=== PATIENT | male | born 1940 | race Two or more races ===

== ENCOUNTER 2022-05-12 23:22 | Emergency (ER) | payer MEDICARE, OTHER ==
[~2022-05-12] VITALS: Ht 167.6 cm; Wt 63.5 kg
[2022-05-13] MEDS ORDERED: DIATR MEGLU/DIATRIZOATE SODIUM 30 ML BOTTLE (GASTROGRAPHIN) ONE (00:54)
--- NOTE | 2022-05-13 02:02 | NUR ---
GTUBE REPLACED AND CONFIRMED BY XRAY.
--- NOTE | 2022-05-13 02:39 | NUR ---
[facility] CALLED ETA 30-45 MINUTES.
--- NOTE | 2022-05-13 03:08 | NUR ---
REPORT GIVEN TO MICHI FOR [facility]
--- NOTE | 2022-05-13 03:09 | NUR ---
PICKED UP BY [facility] [address] IN STABLE CONDITION
[2022-05-13 03:15] VITALS: BP 121/64
== END 2022-05-13 03:16 ==
LOC: ER 23:24
DX: Z43.1 Encounter for attention to gastrostomy (principal); I10 Essential (primary) hypertension; J44.9 Chronic obstructive pulmonary disease, unspecified; F03.90 Unspecified dementia, unspecified severity, without behavioral disturbance, psychotic disturbance, mood disturbance, and anxiety; Z86.73 Personal history of transient ischemic attack (TIA), and cerebral infarction without residual deficits
CPT/HCPCS: 99284; 43762; 74018; Q9963

== ENCOUNTER 2023-04-17 12:16 | Emergency (ER) | payer MEDICARE, OTHER ==
[~2023-04-17] VITALS: Ht 167.6 cm; Wt 65.3 kg
[2023-04-17] MEDS ORDERED: DIATR MEGLU/DIATRIZOATE SODIUM 30 ML BOTTLE (GASTROGRAPHIN) ONE (15:22)
[2023-04-17 19:23] VITALS: BP 124/58; TEMP 97.9; O2SAT 98
== END 2023-04-17 19:29 ==
LOC: ER 12:35
DX: K92.89 Other specified diseases of the digestive system (principal); I10 Essential (primary) hypertension; J44.9 Chronic obstructive pulmonary disease, unspecified; F03.90 Unspecified dementia, unspecified severity, without behavioral disturbance, psychotic disturbance, mood disturbance, and anxiety; Y92.89 Other specified places as the place of occurrence of the external cause
CPT/HCPCS: 99284; 43762; 74018 ×2; Q9963

== ENCOUNTER 2023-09-06 22:46 | Inpatient (IN) | payer MEDICARE, OTHER ==
[~2023-09-06] VITALS: Ht 175.3 cm; Wt 62.1 kg
[2023-09-06 23:39] LABS: BASOPHILS % (AUTO) 0.5 % (0.0-2.0); EOSINOPHILS # (AUTO) 0.1 K/uL (0.0-0.7); EOSINOPHILS % (AUTO) 1.4 % (0.0-6.0); HEMATOCRIT 42 % (39-51); HEMOGLOBIN 13.7 g/dL (13.5-17.5); LYMPHOCYTES # (AUTO) 1.7 K/uL (0.8-4.8); LYMPHOCYTES % (AUTO) 31.2 % (20.0-44.0); MEAN CORPUSCULAR HEMOGLOBIN 28 PG (26.0-33.0); MEAN CORPUSCULAR HGB CONC 33 g/dl (31.0-36.0); MEAN CORPUSCULAR VOLUME 84 fL (80-96); MONOCYTES # (AUTO) 0.3 K/uL (0.1-1.30); NEUTROPHILS # (AUTO) 3.3 K/uL (1.8-8.9); NEUTROPHILS % (AUTO) 60.9 % (43.0-81.0); PLATELET COUNT (AUTO) 69 K/uL (150-450); RED BLOOD CELL COUNT(AUTO) 4.99 MIL/uL (4.5-6.0); RED CELL DISTRIBUTION WIDTH 16.7 % (11.5-15.0); WHITE BLOOD COUNT (AUTO) 5.4 K/uL (4.3-11.0)
[2023-09-06 23:45] LABS: INR 1.08 (0.91-1.10); PROTHROMBIN TIME 11.4 SECS (9.2-11.1)
[2023-09-06 23:57] LABS: ANISOCYTOSIS 1+; BASOPHILS % (MANUAL) 0 % (0.0-2.0); EOSINOPHILS % (MANUAL) 1 % (0-4); LYMPHOCYTES % (MANUAL) 29 % (16-48); MONOCYTES % (MANUAL) 5 % (0-11.0); NEUTROPHILS % (MANUAL) 65 (42-76); PLATELET ESTIMATE DECREASED
[2023-09-07] LABS: CALCIUM, SERUM 8.6 mg/dL (8.5-10.1); CARBON DIOXIDE 30 mmol/L (21-32); CHLORIDE 106 mmol/L (98-107); CREATININE 0.6 mg/dL (0.6-1.3); GLUCOSE 107 mg/dL (74-106); POTASSIUM 4.2 mmol/L (3.5-5.1); SODIUM SERUM 143 mmol/L (136-145); UREA NITROGEN, BLOOD 15 mg/dL (7-18)
[2023-09-07 00:06] LABS: LACTIC ACID 2.2 mmol/L (0.4-2.0)
[2023-09-07 00:17] LABS: ALANINE AMINOTRANSFERASE 13 U/L (12-78); ALBUMIN 2.4 g/dL (3.4-5.0); ALKALINE PHOSPHATASE 120 U/L (46-116); ASPARTATE AMINOTRANSFERASE 9 U/L (15-37); BILIRUBIN,TOTAL 0.6 mg/dL (0.2-1.0); NT-PRO BNP 412 pg/mL (0-125); TOTAL PROTEIN, SERUM 7.8 g/dL (6.4-8.2)
[2023-09-07] MEDS: IV NS 0.9% 1,000 ML IV ONE ×2 (01:22→03:13)
[2023-09-07 02:15] LABS: BILIRUBIN,DIRECT 0.2 mg/dL (0.0-0.2)
[2023-09-07 02:23] LABS: LACTIC ACID REFLEX 3.8 mmol/L (0.4-1.9)
[2023-09-07] MEDS: PIPERACILLIN /TAZOBACTAM 3.375 G in IV D5W 50 ML IV ONE (03:13)
[2023-09-07] MEDS ORDERED: PIPERACI/TAZO 3.375GM/D5W 50ML PB IV ONE (03:13)
[2023-09-07 03:14] LABS: APPEARANCE,URINE SLIGHTLY CLOUDY (CLEAR); BILIRUBIN,URINE NEGATIVE (NEGATIVE); BLOOD, URINE 2+ Ery/uL (NEGATIVE); COLOR,URINE YELLOW (YELLOW); KETONES,URINE NEGATIVE (NEGATIVE); LEUKOCYTE ESTERASE ,URINE 3+ (NEGATIVE); NITRITE, URINE NEGATIVE (NEGATIVE); PROTEIN,URINE TRACE mg/dl (NEGATIVE); UGLUCOSE NEGATIVE (NEGATIVE); UROBILINOGEN,URINE 0.2 EU/dL (0.2)
[2023-09-07 03:15] LABS: ADD URINE CULTURE YES; BACTERIA,URINE Few /HPF (None Seen); SQUAMOUS EPITHELIAL CELL,UR Few /HPF (None Seen); WBC,URINE 51-80 /HPF (0-3)
[2023-09-07] MEDS ORDERED: ONDANSETRON HCL/PF 4 MG/2 ML VIAL IVP PRN (04:30)
[2023-09-07] MEDS ORDERED: MAGNESIUM HYDROXIDE 30 ML UDC PO PRN (04:30)
[2023-09-07] MEDS ORDERED: DEXTROSE 50%-WATER 50 ML DISP.SYRIN IV PRN ×2 (04:30→12:30)
[2023-09-07] MEDS ORDERED: ACETAMINOPHEN 325 MG TABLET PO PRN (04:30)
[2023-09-07] MEDS ORDERED: MAG HYDROX/AL HYDROX/SIMETH 30 ML UDC PO PRN (04:30)
[2023-09-07] MEDS ORDERED: Z GUARD REMEDY 4 OZ OINT TP PRN (04:30)
[2023-09-07] MEDS ORDERED: ZOLPIDEM TARTRATE 5 MG TABLET PO PRN (04:30)
[2023-09-07] MEDS: IV 1/2NS 1000 ML 1,000 ML IV SCH (05:20)
[2023-09-07] MEDS: BLOOD SUGAR DIAGNOSTIC 1 EACH STRIP IN SCH ×2 (07:03→17:57)
[2023-09-07] MEDS: INSULIN REGULAR, HUMAN 100 UNIT/ML 3 ML VIAL SQ PRN ×2 (07:04→18:04)
[2023-09-07 08:00] VITALS: BP 169/77; TEMP 97.7; O2SAT 99
[2023-09-07] MEDS ORDERED: MELA1TAB27 GT (08:24)
[2023-09-07] MEDS ORDERED: ATOR20TA GT (08:24)
[2023-09-07] MEDS ORDERED: FOLI0.4T6 GT (08:24)
[2023-09-07] MEDS ORDERED: ACET325T53 GT (08:24)
[2023-09-07] MEDS ORDERED: SENN8.6T19 GT (08:24)
[2023-09-07] MEDS ORDERED: MULT-594 GT (08:24)
[2023-09-07] MEDS ORDERED: THIA100T70 GT (08:24)
[2023-09-07] MEDS ORDERED: IPRA3AMP23 IH (08:24)
[2023-09-07] MEDS ORDERED: GLYC2TAB21 GT (08:24)
[2023-09-07] MEDS ORDERED: BISA10SU11 RC (08:24)
[2023-09-07] MEDS ORDERED: FERR220S2 GT (08:24)
[2023-09-07] MEDS ORDERED: NUT.250L18 GT (08:24)
[2023-09-07] MEDS ORDERED: FINA5TAB11 GT (08:24)
[2023-09-07] MEDS ORDERED: MAGN400T30 GT (08:24)
[2023-09-07] MEDS ORDERED: MAG30ORA GT (08:24)
[2023-09-07] MEDS ORDERED: ENOX40DI9 SQ (08:24)
[2023-09-07] MEDS ORDERED: OMEP40CA21 GT (08:24)
[2023-09-07] MEDS ORDERED: ACET1OOV6 HHN (08:24)
[2023-09-07] MEDS ORDERED: DEXT30DR6 EACHEYE (08:24)
[2023-09-07] MEDS ORDERED: CYAN-51 GT (08:24)
[2023-09-07] MEDS ORDERED: MAGN400O6 GT (08:24)
[2023-09-07] MEDS ORDERED: METO5SOL GT (08:24)
[2023-09-07] MEDS ORDERED: GLUC1KIT IJ (08:24)
[2023-09-07] MEDS ORDERED: VALP250S22 GT (08:24)
[2023-09-07] MEDS ORDERED: INSU100I26 SQ (08:24)
[2023-09-07] MEDS ORDERED: INSU100V11 SQ (08:24)
[2023-09-07] MEDS ORDERED: DOCU50LI GT (08:24)
[2023-09-07] MEDS ORDERED: ENOXAPARIN SODIUM 40 MG/0.4 ML DISP.SYRIN SQ SCH (09:00)
[2023-09-07] MEDS: PANTOPRAZOLE 40 MG VIAL IV SCH (09:13)
[2023-09-07] MEDS: PIPERACILLIN /TAZOBACTAM 3.375 G in IV D5W 100 ML IV SCH (09:13)
[2023-09-07] MEDS ORDERED: PIPERACILLIN /TAZOBACTAM 3.375 G in IV D5W 50 ML IV SCH (11:00)
[2023-09-07 12:30] VITALS: BP 165/67; O2SAT 100
[2023-09-07] MEDS ORDERED: MAG HYDROX/AL HYDROX/SIMETH 30 ML UDC GT PRN (12:30)
[2023-09-07] MEDS: GLUCERNA 1.2 1,000 ML BOTTLE NG PRN (13:01)
[2023-09-07] MEDS: VALPROIC ACID 250 MG/5 ML UDC GT SCH (13:01)
[2023-09-07 16:00] VITALS: BP 116/63; TEMP 98.1; O2SAT 93
[2023-09-07] MEDS: GLYCOPYRROLATE 1 MG TABLET GT SCH (17:11)
[2023-09-07] MEDS: MAGNESIUM OXIDE 400 MG TABLET GT SCH (17:12)
[2023-09-07 20:00] VITALS: BP 131/57; TEMP 97.9; O2SAT 100
[2023-09-07] MEDS: FINASTERIDE (5 MG) 5 MG TABLET GT SCH (21:07)
[2023-09-07] MEDS: ATORVASTATIN 10 MG TABLET GT SCH (21:07)
[2023-09-07 21:09] VITALS: BP 131/57; TEMP 97.9; O2SAT 100
[2023-09-07] MEDS: INSULIN GLARGINE, 100 UNIT/ML CARTRIDGE SQ SCH (21:24)
[2023-09-08] VITALS (9 sets, daily range): BP systolic 116–169; BP diastolic 54–80; TEMP 97.7–98.4; O2SAT 94–99
[2023-09-08 07:39] LABS: CALCIUM, SERUM 8.2 mg/dL (8.5-10.1); CARBON DIOXIDE 24 mmol/L (21-32); CHLORIDE 109 mmol/L (98-107); GLUCOSE 137 mg/dL (74-106); MAGNESIUM 2.3 mg/dL (1.8-2.4); PHOSPHORUS 2.4 mg/dL (2.5-4.9); SODIUM SERUM 141 mmol/L (136-145); UREA NITROGEN, BLOOD 10 mg/dL (7-18)
[2023-09-08 07:59] LABS: CREATININE 0.5 mg/dL (0.6-1.3)
[2023-09-08 08:18] LABS: BASOPHILS # (AUTO) 0.1 K/uL (0.0-0.2); BASOPHILS % (AUTO) 1.2 % (0.0-2.0); EOSINOPHILS # (AUTO) 0.2 K/uL (0.0-0.7); EOSINOPHILS % (AUTO) 3.5 % (0.0-6.0); HEMATOCRIT 38 % (39-51); LYMPHOCYTES # (AUTO) 1.9 K/uL (0.8-4.8); LYMPHOCYTES % (AUTO) 38.1 % (20.0-44.0); MEAN CORPUSCULAR HEMOGLOBIN 27 PG (26.0-33.0); MEAN CORPUSCULAR HGB CONC 32 g/dl (31.0-36.0); MEAN CORPUSCULAR VOLUME 84 fL (80-96); MONOCYTES # (AUTO) 0.4 K/uL (0.1-1.30); MONOCYTES % (AUTO) 8.3 % (2.0-12.0); NEUTROPHILS # (AUTO) 2.4 K/uL (1.8-8.9); NEUTROPHILS % (AUTO) 48.9 % (43.0-81.0); PLATELET COUNT (AUTO) 77 K/uL (150-450); RED BLOOD CELL COUNT(AUTO) 4.48 MIL/uL (4.5-6.0); RED CELL DISTRIBUTION WIDTH 16.3 % (11.5-15.0); WHITE BLOOD COUNT (AUTO) 4.9 K/uL (4.3-11.0)
[2023-09-08] MEDS: PANTOPRAZOLE 40 MG/PACK PACK GT SCH (08:23)
[2023-09-08] MEDS: FERROUS SULFATE UDC 300 MG/5 ML UDC GT SCH (08:23)
[2023-09-08] MEDS: FOLIC ACID 1 MG TABLET GT SCH (08:23)
[2023-09-08 11:42] LABS: LYMPHOCYTES % (MANUAL) 29 % (16-48); MONOCYTES % (MANUAL) 10 % (0-11.0); NEUTROPHILS % (MANUAL) 56 (42-76)
[2023-09-08 11:43] LABS: ANISOCYTOSIS 1+; BASOPHILS % (MANUAL) 0 % (0.0-2.0); EOSINOPHILS % (MANUAL) 5 % (0-4); PLATELET ESTIMATE DECREASED
[2023-09-08] MEDS: NEUTRA PHOS 1 POWD.PACKET NG ONE (17:08)
[2023-09-08] MEDS: hydrALAZINE HCL IV 20 MG VIAL IV PRN (20:34)
[2023-09-09] VITALS: BP 139/63; TEMP 98.1; O2SAT 100
[2023-09-09 05:00] VITALS: BP 131/62; TEMP 97.3; O2SAT 97
[2023-09-09 06:38] LABS: BASOPHILS % (AUTO) 0.3 % (0.0-2.0); EOSINOPHILS # (AUTO) 0.1 K/uL (0.0-0.7); EOSINOPHILS % (AUTO) 2.5 % (0.0-6.0); HEMATOCRIT 38 % (39-51); HEMOGLOBIN 12.3 g/dL (13.5-17.5); LYMPHOCYTES # (AUTO) 1.9 K/uL (0.8-4.8); LYMPHOCYTES % (AUTO) 38.4 % (20.0-44.0); MEAN CORPUSCULAR HEMOGLOBIN 27 PG (26.0-33.0); MEAN CORPUSCULAR HGB CONC 32 g/dl (31.0-36.0); MEAN CORPUSCULAR VOLUME 84 fL (80-96); MONOCYTES # (AUTO) 0.4 K/uL (0.1-1.30); MONOCYTES % (AUTO) 7.8 % (2.0-12.0); NEUTROPHILS # (AUTO) 2.5 K/uL (1.8-8.9); PLATELET COUNT (AUTO) 70 K/uL (150-450); RED BLOOD CELL COUNT(AUTO) 4.58 MIL/uL (4.5-6.0); RED CELL DISTRIBUTION WIDTH 16.3 % (11.5-15.0); WHITE BLOOD COUNT (AUTO) 4.8 K/uL (4.3-11.0)
[2023-09-09 07:02] LABS: CALCIUM, SERUM 8.3 mg/dL (8.5-10.1); CARBON DIOXIDE 27 mmol/L (21-32); CHLORIDE 108 mmol/L (98-107); CREATININE 0.7 mg/dL (0.6-1.3); GLUCOSE 150 mg/dL (74-106); MAGNESIUM 2.1 mg/dL (1.8-2.4); PHOSPHORUS 3.5 mg/dL (2.5-4.9); POTASSIUM 3.9 mmol/L (3.5-5.1); SODIUM SERUM 141 mmol/L (136-145); UREA NITROGEN, BLOOD 11 mg/dL (7-18)
[2023-09-09 09:55] LABS: LYMPHOCYTES % (MANUAL) 39 % (16-48); NEUTROPHILS % (MANUAL) 58 (42-76)
[2023-09-09 09:56] LABS: BASOPHILS % (MANUAL) 0 % (0.0-2.0); EOSINOPHILS % (MANUAL) 0 % (0-4); MONOCYTES % (MANUAL) 3 % (0-11.0); PLATELET ESTIMATE DECREASED
[2023-09-09 20:00] VITALS: BP 156/61; TEMP 98.4; O2SAT 99
[2023-09-09 20:54] VITALS: BP 156/61; TEMP 98.4; O2SAT 99
[2023-09-10] VITALS: BP 142/59; TEMP 98.1; O2SAT 99
[2023-09-10 00:28] VITALS: BP 142/59; TEMP 98.1; O2SAT 99
[2023-09-10 04:00] VITALS: BP 139/54; TEMP 98.6; O2SAT 95
[2023-09-10 06:40] LABS: BASOPHILS % (AUTO) 0.4 % (0.0-2.0); EOSINOPHILS # (AUTO) 0.1 K/uL (0.0-0.7); EOSINOPHILS % (AUTO) 2.4 % (0.0-6.0); HEMATOCRIT 37 % (39-51); HEMOGLOBIN 12.4 g/dL (13.5-17.5); LYMPHOCYTES # (AUTO) 1.9 K/uL (0.8-4.8); LYMPHOCYTES % (AUTO) 34.1 % (20.0-44.0); MEAN CORPUSCULAR HEMOGLOBIN 28 PG (26.0-33.0); MEAN CORPUSCULAR HGB CONC 33 g/dl (31.0-36.0); MEAN CORPUSCULAR VOLUME 82 fL (80-96); MONOCYTES # (AUTO) 0.4 K/uL (0.1-1.30); NEUTROPHILS % (AUTO) 55.1 % (43.0-81.0); PLATELET COUNT (AUTO) 67 K/uL (150-450); WHITE BLOOD COUNT (AUTO) 5.5 K/uL (4.3-11.0)
[2023-09-10 07:21] LABS: CALCIUM, SERUM 8.2 mg/dL (8.5-10.1); CARBON DIOXIDE 26 mmol/L (21-32); CHLORIDE 106 mmol/L (98-107); CREATININE 0.5 mg/dL (0.6-1.3); GLUCOSE 142 mg/dL (74-106); SODIUM SERUM 141 mmol/L (136-145); UREA NITROGEN, BLOOD 11 mg/dL (7-18)
[2023-09-10] MEDS ORDERED: NITR100C6 PO (08:30)
[2023-09-10] MEDS ORDERED: IV 1/2NS 1000 ML 1,000 ML IV PRN (10:32)
[2023-09-10 11:30] LABS: ANISOCYTOSIS 1+; BASOPHILS % (MANUAL) 0 % (0.0-2.0); EOSINOPHILS % (MANUAL) 2 % (0-4); LYMPHOCYTES % (MANUAL) 30 % (16-48); MONOCYTES % (MANUAL) 4 % (0-11.0); NEUTROPHILS % (MANUAL) 64 (42-76); PLATELET ESTIMATE DECREASED
== END 2023-09-10 14:25 | DRG 689 ==
LOC: ER 22:48 → TELE 09-07 03:45
PROVIDERS: ADMIT Internal Medicine; ATTEND Internal Medicine
DX: N39.0 Urinary tract infection, site not specified (principal); G93.41 Metabolic encephalopathy; E87.20 Acidosis, unspecified; F03.90 Unspecified dementia, unspecified severity, without behavioral disturbance, psychotic disturbance, mood disturbance, and anxiety; I10 Essential (primary) hypertension; Z86.73 Personal history of transient ischemic attack (TIA), and cerebral infarction without residual deficits; J44.9 Chronic obstructive pulmonary disease, unspecified; B96.89 Other specified bacterial agents as the cause of diseases classified elsewhere; R13.10 Dysphagia, unspecified; E11.9 Type 2 diabetes mellitus without complications; Z78.1 Physical restraint status; Z79.51 Long term (current) use of inhaled steroids; Z79.899 Other long term (current) drug therapy; Z79.4 Long term (current) use of insulin; Z93.1 Gastrostomy status
CPT/HCPCS: 36415; 74018; 80048-TC; 80053-TC; 81001; 82248-TC; 82962-TC; 83605-TC; 83735-TC; 83880; 84100-TC; 84484-TC; 85025-TC; 85610-TC; 87040-TC; 87081-TC; A4223; G0378; J0360; J1815; J2470; J2543; J3490; J7030; J7050; J7060

== ENCOUNTER 2023-12-08 20:18 | Inpatient (IN) | payer MEDICARE, OTHER ==
[~2023-12-08] VITALS: Ht 170.2 cm; Wt 61.2 kg
[~2023-12-08 20:18] MED LIST: ACET1OOV6 HHN; ACET325T53 GT; ATOR20TA GT; BISA10SU11 RC; CYAN-51 GT; DEXT30DR6 EACHEYE; DOCU50LI GT; ENOX40DI9 SQ; FERR220S2 GT; FINA5TAB11 GT; FOLI0.4T6 GT; GLUC1KIT IJ; GLYC2TAB21 GT; INSU100I26 SQ; INSU100V11 SQ; IPRA3AMP23 IH; MAG30ORA GT; MAGN400O6 GT; MAGN400T30 GT; MELA1TAB27 GT; METO5SOL GT; MULT-594 GT; NITR100C6 PO; NUT.250L18 GT; OMEP40CA21 GT; SENN8.6T19 GT; THIA100T70 GT; VALP250S22 GT
[2023-12-08 21:21] LABS: BASOPHILS % (AUTO) 0.2 % (0.0-2.0); EOSINOPHILS % (AUTO) 0.4 % (0.0-6.0); HEMATOCRIT 42 % (39-51); HEMOGLOBIN 13.9 g/dL (13.5-17.5); LYMPHOCYTES # (AUTO) 1.2 K/uL (0.8-4.8); MEAN CORPUSCULAR HEMOGLOBIN 29 PG (26.0-33.0); MEAN CORPUSCULAR HGB CONC 33 g/dl (31.0-36.0); MEAN CORPUSCULAR VOLUME 86 fL (80-96); MONOCYTES # (AUTO) 0.4 K/uL (0.1-1.30); MONOCYTES % (AUTO) 8.7 % (2.0-12.0); NEUTROPHILS # (AUTO) 3.2 K/uL (1.8-8.9); NEUTROPHILS % (AUTO) 66.7 % (43.0-81.0); PLATELET COUNT (AUTO) 93 K/uL (150-450); RED BLOOD CELL COUNT(AUTO) 4.86 MIL/uL (4.5-6.0); RED CELL DISTRIBUTION WIDTH 14.8 % (11.5-15.0); WHITE BLOOD COUNT (AUTO) 4.9 K/uL (4.3-11.0)
[2023-12-08 21:28] LABS: CARBON DIOXIDE 30 mmol/L (21-32); CHLORIDE 108 mmol/L (98-107); CREATININE 0.6 mg/dL (0.6-1.3); GLUCOSE 143 mg/dL (74-106); POTASSIUM 4.4 mmol/L (3.5-5.1); SODIUM SERUM 146 mmol/L (136-145); UREA NITROGEN, BLOOD 14 mg/dL (7-18)
[2023-12-08] MEDS ORDERED: MAG HYDROX/AL HYDROX/SIMETH 30 ML UDC GT PRN (21:30)
[2023-12-08] MEDS ORDERED: MAGNESIUM HYDROXIDE 30 ML UDC GT PRN (21:30)
[2023-12-08] MEDS ORDERED: Z GUARD REMEDY 4 OZ OINT TP PRN (21:30)
[2023-12-08] MEDS ORDERED: ACETAMINOPHEN 325 MG TABLET MC PRN (21:30)
[2023-12-08] MEDS ORDERED: DEXTROSE 50%-WATER 50 ML DISP.SYRIN IV PRN (21:30)
[2023-12-08] MEDS ORDERED: ACETAMINOPHEN 325 MG TABLET PO PRN (21:30)
[2023-12-08] MEDS ORDERED: ONDANSETRON HCL/PF 4 MG/2 ML VIAL IVP PRN (21:30)
[2023-12-08 21:40] LABS: BAND % (MANUAL) 67 % (0.0-5.0); BASOPHILS % (MANUAL) 0 % (0.0-2.0); EOSINOPHILS % (MANUAL) 0 % (0-4); INR 1.14 (0.91-1.10); LYMPHOCYTES % (MANUAL) 24 % (16-48); MONOCYTES % (MANUAL) 9 % (0-11.0); PARTIAL THROMBOPLASTIN TIME 30.1 SEC (24.3-34.3); PROTHROMBIN TIME 11.6 SECS (9.2-11.1)
[2023-12-08 21:41] LABS: PLATELET ESTIMATE DECREASED
[2023-12-08] MEDS ORDERED: PYRIDOXINE HCL GT SCH (22:00)
[2023-12-08] MEDS ORDERED: Medication Not On Formulary EA (Atorvastatin Calcium (Lipitor) 20 MG) GT SCH (22:00)
[2023-12-08] MEDS ORDERED: MELATONIN GT SCH (22:00)
[2023-12-08] MEDS: FINASTERIDE (5 MG) 5 MG TABLET GT SCH (22:00)
[2023-12-08] MEDS ORDERED: ACETAMINOPHEN LIQUID 325 MG/10.1 ML UDC GT PRN (22:30)
[2023-12-09] MEDS: BLOOD SUGAR DIAGNOSTIC 1 EACH STRIP IN SCH
[2023-12-09] MEDS: CEFTRIAXONE 1 G in IV D5W 50 ML IV SCH (06:20)
[2023-12-09 06:33] LABS: BASOPHILS % (AUTO) 0.5 % (0.0-2.0); EOSINOPHILS # (AUTO) 0.1 K/uL (0.0-0.7); EOSINOPHILS % (AUTO) 1.3 % (0.0-6.0); HEMATOCRIT 45 % (39-51); HEMOGLOBIN 15.2 g/dL (13.5-17.5); LYMPHOCYTES # (AUTO) 2.1 K/uL (0.8-4.8); LYMPHOCYTES % (AUTO) 35.5 % (20.0-44.0); MEAN CORPUSCULAR HEMOGLOBIN 29 PG (26.0-33.0); MEAN CORPUSCULAR HGB CONC 34 g/dl (31.0-36.0); MEAN CORPUSCULAR VOLUME 87 fL (80-96); MONOCYTES # (AUTO) 0.6 K/uL (0.1-1.30); MONOCYTES % (AUTO) 10.7 % (2.0-12.0); NEUTROPHILS # (AUTO) 3.1 K/uL (1.8-8.9); PLATELET COUNT (AUTO) 103 K/uL (150-450); RED BLOOD CELL COUNT(AUTO) 5.24 MIL/uL (4.5-6.0); RED CELL DISTRIBUTION WIDTH 14.6 % (11.5-15.0)
[2023-12-09 06:51] LABS: CALCIUM, SERUM 8.7 mg/dL (8.5-10.1); CARBON DIOXIDE 24 mmol/L (21-32); CHLORIDE 108 mmol/L (98-107); CREATININE 0.5 mg/dL (0.6-1.3); GLUCOSE 110 mg/dL (74-106); MAGNESIUM 2.2 mg/dL (1.8-2.4); PHOSPHORUS 2.9 mg/dL (2.5-4.9); POTASSIUM 5.4 mmol/L (3.5-5.1); SODIUM SERUM 140 mmol/L (136-145); UREA NITROGEN, BLOOD 14 mg/dL (7-18)
[2023-12-09] MEDS ORDERED: CEFTRIAXONE 1GM BAG (ER ONLY) 50 ML IV ONE (07:27)
[2023-12-09] MEDS ORDERED: FERR220S2 GT (08:44)
[2023-12-09] MEDS ORDERED: NUT.237L30 GT (08:44)
[2023-12-09] MEDS: CARBOXYMETHYLCELLULOSE SODIUM 0.4 ML DROPERETTE OP SCH (09:00)
[2023-12-09] MEDS: FERROUS SULFATE UDC 300 MG/5 ML UDC GT SCH (09:00)
[2023-12-09] MEDS ORDERED: Medication Not On Formulary EA (Omeprazole 40 MG) GT SCH (09:00)
[2023-12-09] MEDS ORDERED: HYPROMELLOSE EACHEYE SCH (09:00)
[2023-12-09] MEDS: DOCUSATE SODIUM LIQ 100 MG/10 ML UDC GT SCH (09:00)
[2023-12-09] MEDS ORDERED: Medication Not On Formulary EA (Multivitamins (Multivitamin) 1 TAB) GT SCH (09:00)
[2023-12-09] MEDS ORDERED: Medication Not On Formulary EA (Glycopyrrolate 1 MG) GT SCH (09:00)
[2023-12-09] MEDS: MULTIVITAMINS,THERAGRAN 1 UDTAB TABLET GT SCH (09:00)
[2023-12-09] MEDS: GLYCOPYRROLATE 1 MG TABLET GT SCH (09:00)
[2023-12-09] MEDS: VALPROIC ACID 250 MG/5 ML UDC GT SCH (09:00)
[2023-12-09] MEDS ORDERED: [UNRECOGNIZED DRUG - OTHER] EACHEYE SCH (09:00)
[2023-12-09] MEDS: SENNOSIDES 8.6 MG TABLET GT SCH (09:00)
[2023-12-09] MEDS: THIAMINE HCL 100 MG TABLET GT SCH (09:00)
[2023-12-09] MEDS: FOLIC ACID 1 MG TABLET GT SCH (09:00)
[2023-12-09] MEDS: PANTOPRAZOLE 40 MG/PACK PACK GT SCH (09:00)
[2023-12-09] MEDS: MAGNESIUM OXIDE 400 MG TABLET GT SCH (09:00)
[2023-12-09] MEDS: CYANOCOBALAMIN 500 MCG TABLET GT SCH (09:00)
[2023-12-09] MEDS ORDERED: DEXTRAN EACHEYE SCH (09:00)
[2023-12-09] MEDS: AZITHROMYCIN 500 MG in IV D5W 250 ML IV SCH (10:16)
[2023-12-09] MEDS: IV D5/0.45 NACL 1,000 ML IV PRN (10:16)
[2023-12-09] MEDS: INSULIN REGULAR, HUMAN 100 UNIT/ML 3 ML VIAL SQ PRN (12:26)
[2023-12-09 14:58] LABS: CALCIUM, SERUM 8.2 mg/dL (8.5-10.1); CARBON DIOXIDE 30 mmol/L (21-32); CHLORIDE 107 mmol/L (98-107); CREATININE 0.7 mg/dL (0.6-1.3); GLUCOSE 170 mg/dL (74-106); SODIUM SERUM 143 mmol/L (136-145); UREA NITROGEN, BLOOD 16 mg/dL (7-18)
[2023-12-09] MEDS ORDERED: ANESTHESIA TRAY IN PYXIS 1 EA TRAY MC ONE (15:39)
[2023-12-09 20:00] VITALS: BP 133/63; TEMP 98.1; O2SAT 98
[2023-12-09] MEDS: ATORVASTATIN 10 MG TABLET GT SCH (22:08)
[2023-12-10 04:00] VITALS: BP 143/75; TEMP 98.5; O2SAT 99
[2023-12-10 10:26] LABS: BASOPHILS % (AUTO) 0.4 % (0.0-2.0); EOSINOPHILS # (AUTO) 0.1 K/uL (0.0-0.7); HEMATOCRIT 44 % (39-51); HEMOGLOBIN 14.1 g/dL (13.5-17.5); LYMPHOCYTES # (AUTO) 2.1 K/uL (0.8-4.8); LYMPHOCYTES % (AUTO) 39.8 % (20.0-44.0); MEAN CORPUSCULAR HEMOGLOBIN 28 PG (26.0-33.0); MEAN CORPUSCULAR HGB CONC 32 g/dl (31.0-36.0); MEAN CORPUSCULAR VOLUME 87 fL (80-96); MONOCYTES # (AUTO) 0.5 K/uL (0.1-1.30); MONOCYTES % (AUTO) 9.1 % (2.0-12.0); NEUTROPHILS # (AUTO) 2.6 K/uL (1.8-8.9); NEUTROPHILS % (AUTO) 49.7 % (43.0-81.0); PLATELET COUNT (AUTO) 95 K/uL (150-450); RED BLOOD CELL COUNT(AUTO) 5.02 MIL/uL (4.5-6.0); RED CELL DISTRIBUTION WIDTH 14.6 % (11.5-15.0); WHITE BLOOD COUNT (AUTO) 5.3 K/uL (4.3-11.0)
[2023-12-10 10:32] LABS: CALCIUM, SERUM 8.8 mg/dL (8.5-10.1); CARBON DIOXIDE 29 mmol/L (21-32); CHLORIDE 109 mmol/L (98-107); CREATININE 0.6 mg/dL (0.6-1.3); GLUCOSE 169 mg/dL (74-106); POTASSIUM 4.3 mmol/L (3.5-5.1); SODIUM SERUM 145 mmol/L (136-145); UREA NITROGEN, BLOOD 15 mg/dL (7-18)
[2023-12-10 10:41] LABS: LYMPHOCYTES % (MANUAL) 32 % (16-48); NEUTROPHILS % (MANUAL) 55 (42-76)
[2023-12-10 10:42] LABS: BASOPHILS % (MANUAL) 0 % (0.0-2.0); EOSINOPHILS % (MANUAL) 3 % (0-4); MONOCYTES % (MANUAL) 10 % (0-11.0); PLATELET ESTIMATE DECREASED
[2023-12-10] MEDS ORDERED: GLUCERNA 1.2 1,000 ML BOTTLE NG PRN (18:30)
[2023-12-10 20:00] VITALS: BP 147/67; TEMP 97.8; O2SAT 96
[2023-12-10] MEDS: GLUCERNA 1.2 1,000 ML BOTTLE NG PRN (20:20)
[2023-12-11 04:00] VITALS: BP 133/62; TEMP 98.3; O2SAT 94
[2023-12-11 20:00] VITALS: BP 141/64; TEMP 98.1; O2SAT 98
[2023-12-11] MEDS: INSULIN GLARGINE, 100 UNIT/ML CARTRIDGE SQ SCH (21:37)
[2023-12-12] MEDS: GLUCERNA 1.2 1,000 ML BOTTLE NG PRN (00:57)
[2023-12-12 04:00] VITALS: BP 125/55; TEMP 97.6; O2SAT 96
[2023-12-12 08:00] VITALS: BP 125/58; TEMP 97.7; O2SAT 96
[2023-12-12] MEDS: FERROUS SULFATE UDC 300 MG/5 ML UDC GT SCH (09:39)
== END 2023-12-12 11:23 | DRG 394 ==
LOC: ER 20:21 → MEDSG1 12-09 06:03
PROVIDERS: ADMIT Nurse Practitioner Acute Care; ATTEND Nurse Practitioner Acute Care
PROC: 0DH63UZ Insertion of Feeding Device into Stomach, Percutaneous Approach (ICD-10-PCS; principal; 2023-12-12)
DX: K94.23 Gastrostomy malfunction (principal); D68.59 Other primary thrombophilia; G93.40 Encephalopathy, unspecified; Y83.3 Surgical operation with formation of external stoma as the cause of abnormal reaction of the patient, or of later complication, without mention of misadventure at the time of the procedure; Y92.9 Unspecified place or not applicable; K21.9 Gastro-esophageal reflux disease without esophagitis; R13.10 Dysphagia, unspecified; Z86.73 Personal history of transient ischemic attack (TIA), and cerebral infarction without residual deficits; Z87.19 Personal history of other diseases of the digestive system; I10 Essential (primary) hypertension; E78.5 Hyperlipidemia, unspecified; J44.9 Chronic obstructive pulmonary disease, unspecified; Z74.01 Bed confinement status; E11.9 Type 2 diabetes mellitus without complications; N40.0 Benign prostatic hyperplasia without lower urinary tract symptoms; Z79.51 Long term (current) use of inhaled steroids; Z79.899 Other long term (current) drug therapy; Z79.4 Long term (current) use of insulin; Z79.01 Long term (current) use of anticoagulants; F03.90 Unspecified dementia, unspecified severity, without behavioral disturbance, psychotic disturbance, mood disturbance, and anxiety
CPT/HCPCS: 36415; 43246; 71045-TC; 80048-TC; 82962-TC; 83735-TC; 84100-TC; 85025-TC; 85730-TC; A4223; G0378; J0456; J0696; J1815; J2704; J3490; J7030; J7040; J7042; J7060

== ENCOUNTER 2023-12-16 14:29 | Emergency (ER) | payer MEDICARE, OTHER ==
[~2023-12-16] VITALS: Ht 167.6 cm; Wt 62.6 kg
[~2023-12-16 14:29] MED LIST changes: -ACET1OOV6 HHN; -ACET325T53 GT; -BISA10SU11 RC; -CYAN-51 GT; -DEXT30DR6 EACHEYE; -DOCU50LI GT; -ENOX40DI9 SQ; -GLUC1KIT IJ; -INSU100V11 SQ; -IPRA3AMP23 IH; -MAG30ORA GT; -MAGN400O6 GT; -MELA1TAB27 GT; -METO5SOL GT; -MULT-594 GT; -NITR100C6 PO; +NUT.237L30 GT; -NUT.250L18 GT; -OMEP40CA21 GT; -SENN8.6T19 GT; -THIA100T70 GT
[2023-12-16] MEDS: DIATR MEGLU/DIATRIZOATE SODIUM 30 ML BOTTLE (GASTROGRAPHIN) PO ONE (15:20)
[2023-12-16] MEDS ORDERED: DIATR MEGLU/DIATRIZOATE SODIUM 30 ML BOTTLE (GASTROGRAPHIN) ONE (15:22)
[2023-12-16 15:30] VITALS: TEMP 98
[2023-12-16 20:39] VITALS: BP 153/54; O2SAT 96
== END 2023-12-16 21:40 ==
LOC: ER 14:37
DX: K94.29 Other complications of gastrostomy (principal); I10 Essential (primary) hypertension; E78.5 Hyperlipidemia, unspecified; J44.9 Chronic obstructive pulmonary disease, unspecified; Z86.73 Personal history of transient ischemic attack (TIA), and cerebral infarction without residual deficits; F03.90 Unspecified dementia, unspecified severity, without behavioral disturbance, psychotic disturbance, mood disturbance, and anxiety; E11.9 Type 2 diabetes mellitus without complications; Z79.899 Other long term (current) drug therapy
CPT/HCPCS: 99284; 43762; 74018; Q9963

== ENCOUNTER 2024-02-19 16:03 | Emergency (ER) | payer MEDICARE, OTHER ==
[~2024-02-19] VITALS: Ht 167.6 cm; Wt 65.8 kg
[2024-02-19] MEDS ORDERED: CYAN500T64 GT (17:01)
[2024-02-19] MEDS ORDERED: IPRA3AMP22 IH (17:01)
[2024-02-19] MEDS ORDERED: MAG-5 GT (17:01)
[2024-02-19] MEDS ORDERED: POLY15DR17 EACHEYE (17:01)
[2024-02-19] MEDS ORDERED: METO5SOL20 GT (17:01)
[2024-02-19] MEDS ORDERED: NUT.237L31 GT (17:01)
[2024-02-19] MEDS ORDERED: OMEP40CA21 GT (17:01)
[2024-02-19] MEDS ORDERED: FLUT1DIS3 IH (17:01)
[2024-02-19] MEDS ORDERED: MAGN400T8 GT (17:01)
[2024-02-19] MEDS ORDERED: DOCU100T2 GT (17:01)
[2024-02-19] MEDS ORDERED: SENN-18 GT (17:01)
[2024-02-19] MEDS ORDERED: THIA100T74 GT (17:01)
[2024-02-19] MEDS ORDERED: MELA3TAB41 GT (17:01)
[2024-02-19] MEDS ORDERED: INSU100I40 SQ (17:01)
[2024-02-19] MEDS ORDERED: ACET-868 GT ×2 (17:01)
[2024-02-19] MEDS ORDERED: ENOX40DI SQ (17:01)
[2024-02-19] MEDS ORDERED: BISA10SU11 RC (17:01)
[2024-02-19] MEDS ORDERED: MAGN400O6 GT (17:01)
[2024-02-19] MEDS ORDERED: MULT-213 GT (17:01)
[2024-02-19] MEDS ORDERED: DIATR MEGLU/DIATRIZOATE SODIUM 30 ML BOTTLE (GASTROGRAPHIN) ONE (17:07)
[2024-02-19 17:50] VITALS: BP 126/69; TEMP 98.2; O2SAT 98
== END 2024-02-19 17:50 ==
LOC: ER 16:42
DX: K94.29 Other complications of gastrostomy (principal); E11.9 Type 2 diabetes mellitus without complications; E78.5 Hyperlipidemia, unspecified; F03.90 Unspecified dementia, unspecified severity, without behavioral disturbance, psychotic disturbance, mood disturbance, and anxiety; I10 Essential (primary) hypertension; J44.9 Chronic obstructive pulmonary disease, unspecified; Z79.51 Long term (current) use of inhaled steroids; Z79.899 Other long term (current) drug therapy; Z86.73 Personal history of transient ischemic attack (TIA), and cerebral infarction without residual deficits
CPT/HCPCS: 99284; 43762; 74018; Q9963